=== PATIENT | female | born 1960 | race Two or more races ===

== ENCOUNTER 2024-03-12 13:06 | Emergency (ER) | payer MEDICARE, SELFPAY ==
[2024-03-12 13:16] VITALS: BP 141/88; PULSE 100; TEMP 38.3; O2SAT 96; BMI 32.7
--- NOTE | 2024-03-12 13:26 | XR_ITS ---
The [address] [address] Patient Name: CAITLYN KIM MRN: [id number] date: 1960 Sex: F Assigned Patient Location: ER Current Patient Location: ER Accession/Order Number: [id number] Exam Date: 03/12/2024 14:00 Report Date: 03/12/2024 14:57 At the request of: LINDSEY PRO Procedure: XR chest 1V PROCEDURE: XR chest 1V, 03/12/2024 2:00 PM EST CLINICAL INDICATIONS: Fever, chronic obstructive pulmonary disease COMPARISON: None TECHNIQUE: Upright AP portable chest 1354 hours FINDINGS: The heart is upper normal in size. Mediastinum unremarkable. Lung volumes are mildly diminished. Bronchial wall thickening is noted. Acute consolidation, pleural effusion, or pneumothorax is not demonstrated. 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 Acute osseous pathology is not evident. Regional soft tissues normal. XR/XR chest 1V IMPRESSION: 1. Bronchial wall thickening. Subsegmental atelectasis, bronchitis, airways disease are all considered 2. Mild diminished lung volumes without consolidation, pleural effusion or pneumothorax Electronically authenticated by: JOSUE PEPPER Date: 03/12/2024 14:57
--- NOTE | 2024-03-12 13:33 | ED_ITS ---
HPI - URI/Sore Throat General Chief Complaint: Upper Respiratory Infection Stated Complaint: COPD AND HEAD CONGESTION Time Seen by Provider: 03/12/24 13:24 Source: patient Limitations: no limitations History of Present Illness HPI Narrative: 63-year-old female presents for nasal congestion. She feels the congestion is in her nose and not so much in her chest. She has not had a productive cough. This came on during the night. She attributes it to another family member changing that he is up and down frequently in their home. She was noted to have a fever here and had taken some Tylenol earlier today. Related Data Home Medications ?Medication ?Instructions ?Recorded ?Confirmed albuterol sulfate 90 mcg/actuation 1 inh inhalation Q6H 03/12/24 03/12/24 aerosol inhaler diltiazem HCl 420 mg capsule,24 420 mg PO DAILY 03/12/24 03/12/24 hr,extended release (Tiadylt ER) hydrocodone 10 mg-acetaminophen 1 tab PO Q4H 03/12/24 03/12/24 325 mg tablet lisinopril 40 mg tablet 40 mg PO DAILY 03/12/24 03/12/24 Previous Rx's ?Medication ?Instructions ?Recorded amoxicillin 500 mg capsule 500 mg PO TID 10 days #30 caps 03/12/24 Allergies Allergy/AdvReac Type Severity Reaction Status Date / Time No Known Drug Allergies Allergy Verified 03/12/24 13:16 Review of Systems ROS Narrative A ten point review of systems is negative except as noted above. Exam Narrative Exam Narrative: Nurses note and vital signs reviewed and patient is not hypoxic. General: The patient appears well and in no apparent distress. Patient is resting comfortably on cart. Skin: Warm, dry, no pallor noted. There is no rash noted. Head: Normocephalic, atraumatic Eye: Normal conjunctiva, no drainage Ears, Nose, Mouth, and Throat: oral mucosa is moist. Nares patent. Nasal congestion present Cardiovascular: Regular Rate and Rhythm Respiratory: Patient is in no distress, no accessory muscle use, lungs are clear to auscultation, no wheezing, rales or rhonchi Back: non-tender GI: Soft and nontender Musculoskeletal: The patient has no evidence of calf tenderness, no pitting edema, symmetrical pulses noted bilaterally Neurological: A&O, normal speech Psychiatric: Cooperative Constitutional Vital Signs, click to edit/add: Last Vital Signs Temp 101.0 F H 03/12/24 13:16 Pulse 100 H 03/12/24 13:16 Resp 18 03/12/24 13:16 BP 141/88 03/12/24 13:16 Pulse Ox 96 03/12/24 13:16 O2 Del Method Room Air 03/12/24 13:16 Course Vital Signs Vital signs: Vital Signs Temperature 101.0 F H 03/12/24 13:16 Pulse Rate 100 H 03/12/24 13:16 Respiratory Rate 18 03/12/24 13:16 Blood Pressure 141/88 03/12/24 13:16 Pulse Oximetry 96 03/12/24 13:16 Oxygen Delivery Method Room Air 03/12/24 13:16 Temperature 101.0 F H 03/12/24 13:16 Pulse Rate 100 H 03/12/24 13:16 Respiratory Rate 18 03/12/24 13:16 Blood Pressure 141/88 03/12/24 13:16 Pulse Oximetry 96 03/12/24 13:16 Oxygen Delivery Method Room Air 03/12/24 13:16 MDM - URI/Sore Throat MDM Narrative Medical decision making narrative: COVID, influenza, and chest x-ray are negative. Strep test is positive and the patient is prescribed amoxicillin. Treatment diagnosis and follow-up were discussed with the patient. Differential Diagnosis Differential diagnosis: Likely upper respiratory infection, viral infection, influenza and other (Pneumonia) Lab Data Attestation: I reviewed the patient's lab results. Labs: Lab Results 03/12/24 Range/Units 13:24 Influenza Type A Ag Negative Influenza Type B Ag Negative SARS-CoV-2 Ag (CV2AG) Negative (NEGATIVE) Streptococcus Screen Positive A Imaging Data Chest x-ray: Radiologist's impression: ITS Impressions Chest X-Ray 03/12/24 13:26 IMPRESSION: 1. Bronchial wall thickening. Subsegmental atelectasis, bronchitis, airways disease are all considered 2. Mild diminished lung volumes without consolidation, pleural effusion or pneumothorax Electronically authenticated by: JOSUE PEPPER Date: 03/12/2024 14:57 Discharge Plan Discharge Chief Complaint: Upper Respiratory Infection Clinical Impression: Strep throat Patient Disposition: Home, Self-Care Time of Disposition Decision: 15:06 Condition: Good Mode of Transportation: Private Vehicle Prescriptions / Home Meds: New amoxicillin 500 mg capsule 500 mg PO TID 10 Days Qty: 30 0RF No Action lisinopril 40 mg tablet 40 mg PO DAILY diltiazem HCl [Tiadylt ER] 420 mg capsule,extended release 24 hr 420 mg PO DAILY hydrocodone-acetaminophen 10-325 mg tablet 1 tab PO Q4H albuterol sulfate 90 mcg/actuation HFA aerosol inhaler 1 inh inhalation Q6H Print Language: Azerbaijani Instructions: Strep Throat (ED) Referrals: Physician,Non-Staff, MD [Primary Care Provider] - 1 week
[2024-03-12 13:42] LABS: Internal Control Within Normal Limits; Strep A Antigen Screen Positive
[2024-03-12 13:47] LABS: Influenza Virus A Antigen Negative; Influenza Virus B Antigen Negative; Internal Control Within Normal Limits; SARS-CoV-2 Ag NEGATIVE (NEGATIVE)
[2024-03-12 14:20] VITALS: BP 127/78; PULSE 98; TEMP 39.4; O2SAT 98
[2024-03-12] MEDS: IBUPROFEN 400 MG TABLET 800 MG PO (14:41)
[2024-03-12 15:24] VITALS: BP 146/87; PULSE 111; TEMP 39.2; O2SAT 97
== END 2024-03-12 15:28 | disposition home or self-care (01) ==
PROVIDERS: Emergency Provider Emergency Medicine
DX: J02.0 Streptococcal pharyngitis (principal); R50.9 Fever, unspecified
CPT/HCPCS: 71045; 87804; 87811; 87880; 99284